=== PATIENT | female | born 1990 | race African-American/Black ===

== ENCOUNTER 2017-04-26 07:49 | Emergency (ER) | payer OTHER ==
--- NOTE | ~2017-04-26 | EKG ---
PATIENT: MARIA FERNANDA MENDOZA UNIT #: [id number] Ventricular Rate: 77 BPM Atrial Rate: 77 BPM P-R Interval: 154 ms QRS Duration: 86 ms Q-T Interval: 366 ms QTC Calculation(Bezet): 414 ms P Gerlaw: 56 degrees Calculated R Gerlaw: 50 degrees Calculated T Gerlaw: 40 degrees Diagnosis Line: Normal sinus rhythm with sinus arrhythmia Diagnosis Line: Normal ECG Diagnosis Line: No previous ECGs available Diagnosis Line: Confirmed by REYMUNDO FLOYD MD ([id number]) on 04/26/2017 Diagnosis Line: 7:22:00 PM INTERPRETING MD: EVERETT LUQUE
[2017-04-26 09:31] LABS: URINE SOURCE CLEAN CATCH
[2017-04-26 09:36] LABS: URINE APPEARANCE CLEAR; URINE BILIRUBIN NEG (NEG); URINE BLOOD NEG (NEG); URINE COLOR DK YELLOW; URINE GLUCOSE NEG (NEG); URINE KETONE TRACE (NEG); URINE LEUKOCYTE ESTERASE 1+ (NEG); URINE NITRATE NEG (NEG); URINE PH 5.5 (5-8); URINE PROTEIN TRACE (NEG); URINE SPECIFIC GRAVITY 1.037 (1.003-1.035)
[2017-04-26 09:39] LABS: CULTURE INDICATED? YES; URBCS1 AUWI 0-2 /[HPF] (0-2); URINE BACTERIA AUWI 1+ (NEGATIVE); URINE SQUAMOUS EPITHELIAL CELL OCC /[HPF]
[2017-04-26 10:07] LABS: BASOPHIL% 0.3 % (0-2.5); EOSINOPHIL% 0.5 % (0.0-7.0); HEMATOCRIT 37.4 % (35.0-45.0); HEMOGLOBIN 12.6 gm/dL (12.0-16.0); LYMPHOCYTE# 1.4 X10e3 (1.0-3.5); LYMPHOCYTE% 17.5 % (17.0-45.0); MEAN CELL VOLUME 84.8 FL (83-96); MEAN CORPUSCULAR HEMOGLOBIN 28.5 PG (28-34); MEAN CORPUSCULAR HGB CONC 33.6 g/dL (30-36); MEAN PLATELET VOLUME 8.7 FL (6.5-11.5); MONOCYTE# 0.5 X10e3 (0-1.0); MONOCYTE% 6.7 % (3.0-12.0); NEUTROPHIL# 5.8 X10e3 (1.5-7.1); PLATELET COUNT 316 X10e3 (140-420); RED BLOOD COUNT 4.41 X10e (3.90-5.30); RED CELL DISTRIBUTION WIDTH 13.5 % (11.0-15.5); WHITE BLOOD COUNT 7.8 X10e3 (4.0-10.5)
[2017-04-26 10:08] LABS: DIFF IND NO
[2017-04-26 10:43] LABS: ALBUMIN SERUM 4.1 g/dL (3.5-5.0); BILIRUBIN, DIRECT 0.1 mg/dL (0.0-0.2); BILIRUBIN,INDIRECT 0.8 mg/dL (0.0-0.9); BILIRUBIN,TOTAL 0.9 mg/dL (0.2-2.0); BUN/CREATININE RATIO 13.33; CREATININE SERUM 0.9 mg/dL (0.6-1.4); GLOM FILT RATE Estimated 103.8 mL/min (>60); POTASSIUM 3.8 mmol/L (3.5-5.1); PROTEIN TOTAL SERUM 7.3 g/dL (6.0-8.3)
[2017-04-29 13:29] LABS: CHLAMYDIA TRACH Detected (Not Detected); N GONOR Not Detected (Not Detected)
== END 2017-04-26 13:15 | disposition home or self-care (01) ==
LOC: CED 07:49
PROVIDERS: Nurse Practitioner
DX: N30.00 Acute cystitis without hematuria (principal); Z88.8 Allergy status to other drugs, medicaments and biological substances
CPT/HCPCS: 36415; 80048; 80076; 81003; 82150; 83690; 84703; 85025; 87086; 87491; 87591; 87808; 87905; 93005; 99285